=== PATIENT | male | born 1945 | race Two or more races ===

== ENCOUNTER 2018-03-10 10:55 | Outpatient (CLI) | payer OTHER ==
[~2018-03-10 10:55] MED LIST: AMLODIPINE BESY10 MG; CLINDAMYCIN HC300 MG; LISINOPRIL10 MG; ZOCOR20 MG
== END 2018-03-10 11:20 | disposition home or self-care (01) ==
LOC: TOM 10:55
DX: M48.02 Spinal stenosis, cervical region (principal); M47.12 Other spondylosis with myelopathy, cervical region; M54.41 Lumbago with sciatica, right side; M47.26 Other spondylosis with radiculopathy, lumbar region; M47.27 Other spondylosis with radiculopathy, lumbosacral region; M43.16 Spondylolisthesis, lumbar region; R26.2 Difficulty in walking, not elsewhere classified; M85.80 Other specified disorders of bone density and structure, unspecified site